=== PATIENT | male | born 2000 | race Caucasian/White ===

== ENCOUNTER 2023-07-20 14:53 | Emergency (ER) | payer BC | END 2023-07-20 18:29 | disposition home or self-care (01) | LOC: MW.ED 14:53 | DX: S06.0X1A Concussion with loss of consciousness of 30 minutes or less, initial encounter (principal); V00.831A Fall from motorized mobility scooter, initial encounter; Y92.410 Unspecified street and highway as the place of occurrence of the external cause | CPT/HCPCS: 70450; 70450-26; 72125; 72125-26; 99283; 99284 ==